=== PATIENT | female | born 1995 | race Caucasian/White ===

== ENCOUNTER 2022-02-13 08:19 | Emergency (ER) | payer OTHER, SELFPAY ==
[2022-02-13 08:25] VITALS: BP 148/86; PULSE 91; RESP 20; TEMP 36.8; O2SAT 100
--- NOTE | 2022-02-13 08:40 | ED.URI ---
HPI - URI/Sore Throat General Chief Complaint: Upper Respiratory Infection Stated Complaint: cough throat and ears Time Seen by Provider: 02/13/22 08:41 Source: patient, RN notes reviewed and old records reviewed Mode of arrival: ambulatory Limitations: no limitations History of Present Illness HPI Narrative: 26-year-old female who presents to [facility] with complaints of scratchy throat cough which started on Tuesday denies any body aches and any known fever but has had chills and sweats. Patient does complain also of some ear pain. Patient has taken Mucinex and then also DayQuil and NyQuil. MD elicited complaint: cough, rhinorrhea, nasal congestion and other (Ear pain) Treatments prior to arrival: other (DayQuil and NyQuil and Mucinex) Related Data Home Medications Medication Instructions Recorded Confirmed escitalopram oxalate 10 mg tablet 10 mg PO DAILY 02/13/22 02/13/22 norethindrone (contraceptive) 0.35 0.35 mg PO DAILY 02/13/22 02/13/22 mg tablet (Jencycla) omeprazole 40 mg capsule,delayed 40 mg PO DAILY 02/13/22 02/13/22 release spironolactone 100 mg tablet 100 mg PO DAILY 02/13/22 02/13/22 Allergies Allergy/AdvReac Type Severity Reaction Status Date / Time No Known Allergies Allergy Verified 02/13/22 08:45 Review of Systems Review of Systems: CONSTITUTIONAL: Reports malaise, chills, sweats, or fever. EYES: Denies visual changes, redness, or discharge. ENT: Reports rhinorrhea, congestion, sinus pain bilateral otalgia and scratchy sore throat. CARDIOVASCULAR: Denies chest pain, palpitations, or edema. RESPIRATORY: Reports cough.? Denies dyspnea. GASTROINTESTINAL: Denies abdominal pain, nausea, vomiting, diarrhea SKIN: Denies rash or itching. MUSCULOSKELETAL: Denies myalgia. NEUROLOGIC: Denies headache. All systems reviewed & are unremarkable except as noted in HPI and below PMFSH Past Medical History Medical History (Updated 02/14/22 @ 00:00 by Pan Daluz marina) Elevated cholesterol Hypertension Social History Social History (Updated 02/13/22 @ 08:49 by Ileana Brooks NP) Smoking status: Never smoker Alcohol intake: current Alcohol use details: Rare social Substance use: never Substance use type: does not use Living arrangements: with family Gender identity (if verbalized by the patient): Female Comments At time of signature, agree with nursing past medical, surgical, social and family history. There is no relevant family history pertinent to the presenting complaint Exam Narrative: GENERAL: Well-appearing, well-nourished, and in no acute distress. HEAD: Normocephalic EYES: PERRLA, conjunctivae clear ENT: Nares clear, turbinates edematous and erythematous, clear discharge. Mucous membranes moist. Left TM red with bulging, right ear TM arndt with dull light reflex; no tragal tenderness. Oropharynx erythematous without lesions. Tonsils not enlarged and without exudate, no drooling, no hoarseness, no trismus, uvula midline. NECK: Supple. No lymphadenopathy CHEST: Clear to auscultation, breath sounds equal. No wheezing, rhonchi, rales, or stridor. No respiratory distress, speaks in full sentences. Cough SaO2 100% on room air HEART: Regular rate and rhythm. No murmur heard. SKIN: Warm, dry, no rash. NEURO: Alert and oriented x3. PSYCH: Normal mood and affect Course Course Emergency Course: Patient is aware of diagnosis, understands and agrees to treatment plan.? Anticipatory guidance given.? Patient agrees to follow-up as directed and is aware of reasons to seek care at the emergency department. Portions of this record may have been created with voice recognition software Level of Care: Express Care Visit Vital Signs Vital signs: Vital Signs Temperature 36.8 C 02/13/22 08:25 Pulse Rate 91 02/13/22 08:25 Respiratory Rate 20 02/13/22 08:25 Blood Pressure 148/86 H 02/13/22 08:25 Pulse Oximetry 100 02/13/22 08:25 Ox
== END 2022-02-13 09:10 | disposition home or self-care (01) ==
PROVIDERS: Emergency Provider Registered Nurse
DX: J10.1 Influenza due to other identified influenza virus with other respiratory manifestations (principal); H66.92 Otitis media, unspecified, left ear; I10 Essential (primary) hypertension
CPT/HCPCS: 87081; 87804; 87880; 99203; G0463